=== PATIENT | female | born 1995 | race Caucasian/White ===

== ENCOUNTER 2018-03-17 13:36 | Outpatient (CLI) | payer OTHER ==
[2018-03-17] MEDS: ACETAMINOPHEN 500 MG TAB PO (16:37)
== END 2018-03-17 17:15 | disposition home or self-care (01) ==
LOC: OBT 13:36 → L-D 13:37 → OBT 17:15
DX: O62.9 Abnormality of forces of labor, unspecified (principal); Z3A.38 38 weeks gestation of pregnancy
CPT/HCPCS: 76818